=== PATIENT | female | born 1960 | race Caucasian/White ===

== ENCOUNTER → 2020-02-21 | Outpatient (CLI) | payer OTHER, MEDICAID ==
[~2020-02-21] MED LIST: ALPR0.5T PO; ATOR20TA58 PO; BACL20TA PO; BUPIVACAINE MPF 0.25% 10 ML VIAL. ONE; CLON0.1T PO; HYDR50TA PO; IBUP-1007 PO; LEVE100020 PO; OXYC-325 PO; PRAZ2CAP2 PO; VORT20TA PO; ZOLP10TA PO; methylPREDNISolone ACETATE 40 MG/ML VIAL. ONE
--- NOTE | 2020-02-21 14:45 | PDOC1 ---
INITIAL PAIN CONSULT DATE OF SERVICE: DOS: DATE: 02/21/20 TIME: 14:32 CHIEF COMPLAINT: Chief Complaint: Left shoulder, low back and right lower extremity pain HISTORY OF PRESENT ILLNESS: 60-year-old female presents history of pain since 1995 after she fell on ice on stairs and had a fracture in her back which is left her partially paraplegic. Patient reports he has had pain on and off throughout the years even had a baclofen pump at 1 time the pump is still there but nonfunctional spinal cord stimulator system as well as multiple entered inventions including trigger point injections epidural injections also has had multiple bouts of counseling continues to do stretching and strengthening but she can is taking baclofen as a muscle relaxer now as well as Percocet Dilaudid she is tried tramadol which has not been significantly helpful for her. Patient scribes pain is in the left shoulder as well as in the mid back upper back low back and the right leg specifically worse with motion worse with attempted walking, standing although it is limited she can stand and transfer from 1 seated position to another although she is unstable with attempting to walk. Patient is confined essentially to a wheelchair at all times for ambulation. Patient rates her pain as a 9 on a scale of 10 currently. Patient rates her disability rating 0-10 10 being the worst is an 8 with him home responsibilities 9 with recreation and occupational activities 10 with social activity and sexual behavior 7 with self- care and 8 with life support activities. Patient has had multiple films x-ray showing lumbar fusion as well as degenerative disc disease still present throughout the lumbar spine. PAST MEDICAL HISTORY: PMH: Hypertension, arthritis, osteoporosis PREVIOUS SURGERIES: Past Surgical Hx: Lumbar surgery times 08/2011 2003 1986 and 2017, hernia repair x2, bilateral hip replacement 2011, pain pump placement CURRENT MEDICATIONS: Current Meds: Active Scripts Medications Dose Route/Sig Max Daily Dose Days Date Category Ambien (Zolpidem Tartrate) 10 Mg Tablet 10 Mg PO PRN QHS PRN 02/21/20 Reported Trintellix (Vortioxetine) 20 Mg Tablet 1 Tab PO DAILY 30 02/21/20 Reported Prazosin Hcl 2 Mg Capsule 1 Cap PO QHS 02/21/20 Reported Xanax (Alprazolam) 0.5 Mg Tablet 1 Tab PO BID 02/21/20 Reported Clonidine Hcl 0.1 Mg Tablet 0.1 Mg PO BID 02/21/20 Reported Atorvastatin Calcium 20 Mg Tablet 1 Tab PO DAILY 02/21/20 Reported Ibuprofen 600 Mg Tablet 600 Mg PO TID PRN 02/21/20 Reported Hydroxyzine Hcl 50 Mg Tablet 50 Mg PO QID 02/21/20 Reported Baclofen 20 Mg Tablet 1 Tab PO TID 02/21/20 Reported Keppra (Levetiracetam) 1,000 Mg Tablet 1 Tab PO BID 30 02/21/20 Reported Percocet 5-325 mg Tablet (Oxycodone HCl/Acetaminophen) 1 Each Tablet 1 Tab PO QIDPRN PRN MDD 4 Tablet(s) 30 02/21/20 Reported ALLERGIES; Allergies: Coded Allergies: pregabalin (Verified Allergy, Severe, siezures, 02/21/20) mirtazapine (Verified Allergy, Intermediate, nervouse, 02/21/20) FAMILY HISTORY: Family Hx: No major medical problems or conditions that she is aware of SOCIAL HISTORY: Social Hx: Patient is under alcohol does not smoke does not use any illegal illicit or recreational drugs, is single lives locally in [place], is currently on disability secondary to her current situation REVIEW OF SYSTEMS: ROS: Positive for those items mentioned in history of present illness, all systems are reviewed, otherwise negative, is complete full and well-documented on patient's chart PHYSICAL EXAM: VS: Blood pressure is 149/96 pulse 73 respirations 18 temperature 98.2 F height is 5 foot weight is 129 pounds PE: PHYSICAL EXAMINATION: GENERAL: The patient is awake, alert, oriented, appropriate, very pleasant demeanor HEENT: Shows normocephalic, atraumatic. Extraocular movements are intact and symmetrical. Oral cavity: Mucous membranes moist and pink. Dentition is intact. NECK: Shows anterior throat supple without palpable lymphadenopathy noted. Swallow reflex symmetrical. CHEST: Shows normal on inspection. Breath sounds are clear bilaterally, no rales rhonchi or wheezes auscultated. HEART: Shows S1, S2 clear. No murmurs auscultated. ABDOMEN: Soft, nontender, nondistended. No palpable organomegaly is noted. No rebound or guarding demonstrated. BACK: Shows spine grossly in the midline. Normal-appearing cervical lordotic curvature. There is slightly increased thoracic kyphosis, with palpation shows significant tenderness in the left trapezius as well as the supraspinatus and left thoracic paraspinous musculature with very firm ropelike musculature consistent with trigger point areas of muscle. Some minor flattening of the lumbar lordotic curvature. Well-healed surgical scarring is noted in the lumbar distribution. Also easily palpable l intrathecal pump to the left of midline with well-healed surgical scarring as well. lumbar paraspinous muscles show symmetrical on inspection, on palpation shows some moderate tenderness throughout the upper, middle and lower distribution of the paraspinous muscles bilaterally with very firm ropelike musculature in the middle and lower distribution the paraspinous muscles specifically more on the right than the left but very firm consistent with trigger point areas of musculature in the lumbar distribution bilaterally. Also into the lower thoracic paraspinous musculature, firm and tender, without radiation of pain. The patient has good rotational motion of the lumbar spine, both laterally as well as extension and flexion without significant difficulty. No tenderness over the spinous processes, sacrum or sacroiliac regions. EXTREMITIES: Lower extremities show deep tendon reflexes 1+ in the patellar and tendo calcaneus tendons. Motor exam is 3 on a scale of 5 with right dorsifle xion, extension, quadriceps and hamstring flexion and 4/5 on the left. Peripheral pulses are 1+ posterior tibial. No peripheral edema is noted bilaterally. Lower extremities are warm and dry to touch, equal in color and appearance. Patient is able to transfer self from the wheelchair to a chair with some assistance and does put weight on both of her legs but is very unstable in doing so. SKIN: Shows warm and dry, good turgor. No edema. No sores, rashes or bruising throughout. IMPRESSION: Impression: 60-year-old female with history of spinal injury 1996 with partial paraplegia Myofascial pain in the left trapezius, left rhomboid left supraspinatus, bilateral lumbar paraspinous musculature and right hamstring Hypertension Arthritis Osteoporosis Plan: Options were discussed with patient including conservative medical management, physical therapies, and interventional techniques. Patient would like to pursue dimensional techniques we discussed trigger point injections of t he identified musculature. Risks were discussed including but not limited to bleeding infection possibility of intravascular injection sequelae spread local anesthetic numbness pneumothorax side effects of steroid medication and poor results regarding pain control. Patient understands wishes to proceed. Patient will return to clinic in approximately 2 weeks for follow-up was counseled as to return appointment activity level and side effects to be aware of. Under sterile prep and drape patient's left trapezius left supraspinatus left thoracic paraspinous as well as bilateral lumbar paraspinous puncture was prepped and draped and identifying trigger point areas of musculature using a 25-gauge needle 1 cc of 0.25% bupivacaine was injected in each site after negative aspiration a total of 40 mg Depo-Medrol for a total of 14 cc combined. Patient tolerated the procedure well had no immediate complications. BRITTA RAMIREZ MD Feb 21, 2020 14:45
== END ==
LOC: PNCL 10:54
PROVIDERS: ATTEND Anesthesiology
DX: M25.512 Pain in left shoulder (principal); M51.36 Other intervertebral disc degeneration, lumbar region; M79.604 Pain in right leg; M79.18 Myalgia, other site; I10 Essential (primary) hypertension; M19.90 Unspecified osteoarthritis, unspecified site; Z98.890 Other specified postprocedural states; Z88.8 Allergy status to other drugs, medicaments and biological substances; Z79.899 Other long term (current) drug therapy
CPT/HCPCS: 20553; J1030; J3490

== ENCOUNTER → 2020-04-12 | Outpatient (CLI) | payer OTHER, MEDICAID ==
[~2020-04-12] MED LIST changes: +BUPIVACAINE MPF 0.25% 30 ML VIAL. ONE
--- NOTE | 2020-04-12 12:05 | PDOC ---
Progress Note - Pain Clinic Date of Service: DOS: DATE: 04/12/20 TIME: 11:56 Diagnosis: Dx: Myofascial pain with spasticity Partial paraplegia Lumbar radiculopathy with post lumbar laminectomy syndrome History or Present Illness: HPI: 60-year-old female returns follow-up status post initial evaluation and trigger point injections in the left trapezius and rhomboid left thoracic paraspinous musculature as well as the lumbar paraspinous muscles in the right hamstrings. Patient was about 50% improvement for several weeks after the injections where she was decreasing her pain medication by 50%. Patient ports pain is returning now she is taking her pain medicine twice daily as she had previously but had reduced it to once a day after her injections. Patient reports its in the base of the neck and the left shoulder mid upper back left greater than right bilateral lumbar distribution with significant pain with rotation of motion moving standing changing positions also into the right posterior thigh in the hamstring. Patient reports pain is aching dull tight shooting burning stabbing radiating constant unbearable at times worse with trying to get from her wheelchair to the bed or changes positions and transfers. Patient does have partial paraplegia and the pain is limiting her significantly especially in the right hamstrings and the low back. She reports generalized not awaken her from sleep at night she does take medication to help her sleep. Patient reports no new motor or sensory deficits no new bowel or bladder complaints. Physical Exam: VS: Blood pressure is 131/97 pulse 74 respiration 16 temperature is 98.3 F weight is 125 pounds PE: PHYSICAL EXAMINATION: GENERAL: The patient is awake, alert, oriented, appropriate, very pleasant demeanor HEENT: Shows normocephalic, atraumatic. Extraocular movements are intact and symmetrical. Oral cavity: Mucous membranes moist and pink. NECK: Shows anterior throat supple without palpable lymphadenopathy noted. Swallow reflex symmetrical. CHEST: Shows normal on inspection. Breath sounds are clear bilaterally. HEART: Shows S1, S2 clear. No murmurs auscultated. ABDOMEN: Soft, nontender, nondistended, obese. No palpable organomegaly is noted. No rebound or guarding demonstrated. BACK: Shows spine grossly in the midline. Normal-appearing cervical lordotic curvature. There is slightly increased thoracic kyphosis, some minor flattening of the lumbar lordotic curvature. With palpation shows very firm ropelike musculature in the left trapezius medial and lateral aspect and superior into the inferior cervical paraspinous musculature very firm ropelike musculature consistent with trigger point areas but without specific radiation. Thoracic paraspinous muscle shows significant tenderness on the left but not the right in the superior aspect of thoracic paraspinous muscles with very firm ropelike musculature consistent with trigger point areas of musculature but without radiation as well. Well-healed surgical scar in the lumbar midline. Lumbar paraspinous muscles show symmetrical on inspection, on palpation shows upper middle and lower distribution of the paraspinous musculature with very firm ropelike musculature is slightly worse on the left than the right but present bilaterally consistent with areas of trigger point musculature but without specific radiation. No tenderness over the spinous processes, sacrum or sacroiliac regions. EXTREMITIES: Lower extremities show deep tendon reflexes 2+ in the patellar and 1+ tendo calcaneus tendons. Motor exam is 3 on a scale of 5 with right dorsiflexion, extension, quadriceps and hamstring flexion and 4/5 on the left. Right hamstring region shows very firm ropelike musculature throughout the lateral aspect of the hamstring from the ischial tuberosity to the knee with very firm ropelike musculature consistent with trigger point areas of musculature but without radiation. Peripheral pulses are 1+ posterior tibial. No peripheral edema is noted bilaterally. Lower extremities are warm and dry to touch, equal in color and appearance. SKIN: Shows warm and dry, good turgor. No edema. No sores, rashes or bruising throughout. Procedure: Procedure: Options were discussed with the patient. Patient chart was reviewed as her current medication regimen updated current review of systems updated today as well. We will proceed with trigger point injections of the identified musculature. Risks are discussed including but not limited to bleeding infection possibility of intravascular injection sequelae spread local anesthetic numbness pneumothorax side effects of steroid medication and poor results regarding pain control. Patient understands wished to proceed. Patient return to clinic in approximate 4 weeks for follow-up was counseled as to return appointment activity level and side effects to be aware of. Medication Injected: Med Injected: Under sterile prep and drape trigger points were identified in the inferior cervical paraspinous posterior left trapezius musculature left thoracic paraspinous musculature, bilateral lumbar paraspinous musculature and right hamstring musculature. Using a 25-gauge 1/2 inch needle each of the identified trigger point areas were identified and after negative aspiration at each site was injected with 1 cc of 0.25% Vivacaine and a total of 40 cc of Depo-Medrol diluted in the bupivacaine. Patient tolerated the procedure well had no immediate complications. Condition at Discharge: Condition at Discharge: Condition at discharge stable, patient tolerated procedure well had no complications. BRITTA RAMIREZ MD Apr 12, 2020 12:05
== END | disposition home or self-care (01) ==
LOC: PNCL 11:19
PROVIDERS: ATTEND Anesthesiology
DX: M79.18 Myalgia, other site (principal); M54.16 Radiculopathy, lumbar region; M96.1 Postlaminectomy syndrome, not elsewhere classified; R25.2 Cramp and spasm; G82.20 Paraplegia, unspecified; Z79.899 Other long term (current) drug therapy; Z88.8 Allergy status to other drugs, medicaments and biological substances
CPT/HCPCS: 20553; J1030; J3490

== ENCOUNTER → 2020-05-10 | Outpatient (CLI) | payer OTHER, MEDICAID ==
[~2020-05-10] MED LIST changes: -BUPIVACAINE MPF 0.25% 10 ML VIAL. ONE; +ESZO2TAB21 PO
--- NOTE | 2020-05-10 12:43 | PDOC ---
Progress Note - Pain Clinic Date of Service: DOS: DATE: 05/10/20 TIME: 12:36 Diagnosis: Dx: Myofascial pain with spasticity Lumbar radiculopathy with lumbar postlaminectomy syndrome Partial paraplegia History or Present Illness: HPI: 60-year-old female returns follow-up status post trigger point injections with very good results. Reports at least 50% or more decrease pain but the pain returned after about 1 to 2 weeks not to its baseline but still significant reduction overall about 50% patient reports the pain is in the base of the neck and shoulders mid neck as well his upper back mid back low back and the right posterior leg and gluteus bilaterally patient reports is worse with activities standing stretching patient does have some partial paraplegia from previous lumbar injury and is limited to most of her mobility but does have a motorized wheelchair she uses for most of her ambulatory needs. Patient reports her pain is a 9 on scale 10 is worse over the past week 8 on average 8 at its least and is an 8 today patient describes as tingling and burning stabbing aching sharp tight radiating can be constant ache in the low back into the right leg debby etimes unbearable but most times controlled fairly well with stretching and strengthening exercises as well as oral medications. Patient reports no new motor or sensory deficits no new bowel or bladder incontinence. Patient reports that her intrathecal pump site which is on the left posterior gluteus is aching and very painful as well and it has not been used in several years with like to see about getting it removed. Physical Exam: VS: Blood pressure is 118/86 pulse 73 respirations 16 temperature 98.4 F height and weight were deferred secondary to patient's request. PE: PHYSICAL EXAMINATION: GENERAL: The patient is awake, alert, oriented, appropriate, very pleasant demeanor HEENT: Shows normocephalic, atraumatic. Extraocular movements are intact and symmetrical. Oral cavity: Mucous membranes moist and pink. Dentition is intact. NECK: Shows anterior throat supple without palpable lymphadenopathy noted. CHEST: Shows normal on inspection. Breath sounds are clear bilaterally. HEART: Shows S1, S2 clear. No murmurs auscultated. ABDOMEN: Soft, nontender, nondistended. No palpable organomegaly is noted. BACK: Shows spine grossly in the midline. Normal-appearing cervical lordotic curvature. There is increased thoracic kyphosis, some flattening of the lumbar lordotic curvature, with well-healed surgical scarring again noted. Lumbar paraspinous muscles show very firm ropelike musculature bilaterally slightly worse on the right than the left and present bilaterally with very firm trigger point consistency musculature bilaterally without specific radiation this is true into the gluteus musculature as well as the thoracic paraspinous muscles right greater than left but present bilaterally as well throughout the thoracic distribution also with cervical paraspinous muscles show symmetrical with inspection but with palpation some very firm ropelike musculature consistent with trigger point areas of musculature bilaterally again worse on the right than the left but present into the trapezius bilaterally as well on the right worse. No radiation is demonstrated. Patient does show good rotation motion of the cervical spine both laterally as well as extension flexion without significant increase in pain or limitation. EXTREMITIES: Lower extremities show deep tendon reflexes 2+ in the patellar and tendo calcaneus tendons. Motor exam is 3 on a scale of 5 with right dorsiflexion, extension, quadriceps and hamstring flexion and 4/5 on the left. Peripheral pulses are 1+ posterior tibial. No peripheral edema is noted bilaterally. Lower extremities are warm and dry to touch, equal in color and appearance. Patient in electric wheelchair. SKIN: Shows warm and dry, good turgor. No edema. No sores, rashes or bruising throughout. Procedure: Procedure: Options were discussed with the patient. Patient chart reviews her current medication regimen updated current review of systems updated today as well. We will proceed with trigger point injections of the identified musculature. Risks were discussed including but not limited to bleeding infection possibility of intravascular injection sequelae spread to local anesthetic and numbness side effects of steroid medication, as well as poor results running pain control. Patient understands wished to proceed. Patient return to clinic in approximate 4 weeks for follow-up, was counseled as return appointment activity level and side effects to be aware of. Medication Injected: Med Injected: Under sterile prep and drape trigger points were identified in the cervical paraspinous muscles bilaterally bilateral trapezius musculature bilateral thoracic paraspinous musculature bilateral lumbar paraspinous posterior and bilateral gluteus musculature as well as right hamstring musculature. Each showing negative aspiration prior to injection at 1 cc for total of 14 trigger points and 14 cc of 0.25% bupivacaine, and 40 mg total Depo-Medrol. Patient tolerated the procedure well and had no complications. Condition at Discharge: Condition at Discharge: Condition at discharge stable, patient tolerated the procedure well had no complications. BRITTA RAMIREZ MD May 10, 2020 12:43
== END | disposition home or self-care (01) ==
LOC: PNCL 10:54
PROVIDERS: ATTEND Anesthesiology
DX: M54.16 Radiculopathy, lumbar region (principal); M96.1 Postlaminectomy syndrome, not elsewhere classified; M79.18 Myalgia, other site; G82.20 Paraplegia, unspecified; R25.2 Cramp and spasm; Z79.899 Other long term (current) drug therapy; Z98.890 Other specified postprocedural states; Z88.8 Allergy status to other drugs, medicaments and biological substances
CPT/HCPCS: 20553; J1030; J3490

== ENCOUNTER → 2020-06-07 | Outpatient (CLI) | payer OTHER, MEDICAID ==
[~2020-06-07] MED LIST changes: -BUPIVACAINE MPF 0.25% 30 ML VIAL. ONE; +IOHEXOL 180 MG/ML 10 ML VIAL. ONE; +methylPREDNISolone ACETATE 80 MG/ML VIAL. ONE
--- NOTE | 2020-06-07 12:29 | PDOC ---
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 Patient reports that her main complaint today is low back and right lower extremity pain is more increasing into the right posterior gluteus posterior thigh and calf on the right side rates a 9 on scale 10 is worst 9 on average 8 its least is a 9 today. Patient reports no new motor or sensory deficits no bowel or bladder incontinence again patient has partial paraplegia from injury 1995 and is using an electric wheelchair to transfer today. Patient describes pain as aching sharp dull shooting into the right lower extremity stabbing in the back tingling burning in the shoulders as well radiating from the low back into the right lower extremity is constant with activity changing positions and for prolonged sitting. Patient reports that it sporadically wakes her from sleep at night but also to the myofascial pain in the upper back and shoulders is disturbing her sleep as well. Patient reports no new motor or sensory deficits no new changes. Physical Exam: VS: Blood pressure is 143 pulse 79 respirations 20 temperature is 98.2 F PE: PHYSICAL EXAMINATION: GENERAL: The patient is awake, alert, oriented, appropriate, and very pleasant demeanor HEENT: Shows normocephalic, atraumatic. Extraocular movements are intact and symmetrical. Oral cavity: Mucous membranes moist and pink. Dentition is intact. NECK: Shows anterior throat supple without palpable lymphadenopathy noted. Swallow reflex symmetrical. CHEST: Shows normal on inspection. Breath sounds are clear bilaterally, no rales or rhonchi auscultated. HEART: Shows S1, S2 clear. No murmurs auscultated. ABDOMEN: Soft, nontender, nondistended. No palpable organomegaly is noted. BACK: Shows spine grossly in the midline. Normal-appearing cervical lordotic curvature. Patient shows significant tenderness in the inferior cervical paraspinous muscles as well as the bilateral trapezius musculature and thoracic paraspinous muscles very firm ropelike musculature throughout these regions consistent with trigger point areas of musculature but without specific radiation. There is increased thoracic kyphosis, some flattening of the lumbar lordotic curvature, with well-healed surgical scarring noted. Easily palpable intrathecal pump is palpable in the left lateral paraspinous lumbar distribution. Lumbar paraspinous muscles show symmetrical on inspection, on palpation shows some moderate tenderness diffusely throughout the upper, middle and lower distribution of the paraspinous muscles bilaterally and also into the lower thoracic paraspinous musculature, firm and tender, without radiation of pain. The patient has good rotational motion of the lumbar spine, both laterally as well as extension and flexion without significant difficulty. No tenderness over the spinous processes, sacrum or sacroiliac regions. EXTREMITIES: Lower extremities show deep tendon reflexes 2+ in the patellar and tendo calcaneus tendons. Motor exam is 3 on a scale of 5 with right dorsiflexion, extension, quadriceps and hamstring flexion and 4/5 on the left. Peripheral pulses are 1+ posterior tibial. No peripheral edema is noted bilater ally. Lower extremities are warm and dry to touch, equal in color and appearance. Patient has partial paraplegia but uses her lower extremities which are capable to hold her with weightbearing and standing but not capable of walking more than 1 or 2 steps with significant assistance. SKIN: Shows warm and dry, good turgor. No edema. No sores, rashes or bruising throughout. Procedure: Procedure: Options were discussed with the patient. Patient chart reviews her current me dication regimen updated current review of systems updated today as well. We will proceed with a caudal approach epidural steroid injection today with fluoroscopic guidance. Risks were discussed including but not limited to: Bleeding, infection, possibility of epidural hematoma and subsequent neurological compromise, dural puncture, headaches, spinal cord and/or nerve damage, side effects of steroid medication, and poor results regarding pain control. Patient understands and wished to proceed. Patient return to the clinic in approximately 3 weeks for follow-up, was counseled as to return appointment, activity level, and side effects to be aware of. Medication Injected: Med Injected: Procedure is lumbar epidural steroid injection under local anesthetic using sterile prep and drape at the caudal level using C-arm fluoroscopic guidance in both AP and lateral views medications injected is 120 mg Depo-Medrol + 10 mL preservative-free normal saline and 2 mL contrast- condition at discharge is stable patient tolerated procedure well had no complications. Condition at Discharge: Condition at Discharge: Condition at discharge stable, patient tolerated the procedure well and had no complications. BRITTA RAMIREZ MD Jun 07, 2020 12:29
--- NOTE | 2020-06-07 12:30 | PDOC4 ---
PROCEDURE Procedure Patient was consented for a caudal approach epidural steroid injection. Risks were discussed including but not limited to: Bleeding, infection, possibility of epidural hematoma and subsequent neurological compromise, dural puncture, headaches, spinal cord and/or nerve damage, side effects of steroid medication, and poor results regarding pain control. Patient understands and wished to proceed. Procedure is lumbar epidural steroid injection under local anesthetic using sterile prep and drape at the caudal level using C-arm fluoroscopic guidance in both AP and lateral views medications injected is 120 mg Depo-Medrol + 10 mL preservative-free normal saline and 2 mL contrast- condition at discharge is stable patient tolerated procedure well had no complications. BRITTA RAMIREZ MD Jun 07, 2020 12:30
== END | disposition home or self-care (01) ==
LOC: PNCL 11:43
PROVIDERS: ATTEND Anesthesiology
DX: M96.1 Postlaminectomy syndrome, not elsewhere classified (principal); M79.10 Myalgia, unspecified site; R25.2 Cramp and spasm; G82.20 Paraplegia, unspecified; Z79.899 Other long term (current) drug therapy; Z88.8 Allergy status to other drugs, medicaments and biological substances
CPT/HCPCS: 62323; J1030; J1040; Q9965

== ENCOUNTER → 2020-07-05 | Outpatient (CLI) | payer OTHER, MEDICAID ==
[~2020-07-05] MED LIST changes: +BUPIVACAINE MPF 0.25% 10 ML VIAL. ONE
--- NOTE | 2020-07-05 11:42 | PDOC ---
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 Patient ports a caudal injection decrease the pain in her back and leg by about 60% and is still a 6% improved. Patient is very pleased with his and reports that her main complaint now is pain in the left side of the neck and into the left shoulder and upper back. Patient reports otherwise doing very well with the pain in her low back and left leg. Patient reports no new motor or sensory deficits no new bowel or bladder inco ntinence or other complaints. Patient reports the pain in the neck and shoulder is worse with changing positions standing is difficulty with her sleeping about every 4 hours is been waking her from sleep with the pain in the neck and the left shoulder patient rates as a 9 on scale 10 is worse over the past week 9 on average 7 at its least is a 9 today patient ports aching and shooting had some tingling and burning quality as well as stabbing quality as well in the left shoulder and radiating to the upper left back. Physical Exam: VS: Blood pressure is 135/86 pulse 81 respirations 20 temperature 98.0 F, height and weight were deferred as patient is in electric wheelchair. PE: PHYSICAL EXAMINATION: GENERAL: The patient is awake, alert, oriented, appropriate, very pleasant demeanor HEENT: Shows normocephalic, atraumatic. Extraocular movements are intact and symmetrical. Oral cavity: Mucous membranes moist and pink. Dentition is intact. NECK: Shows anterior throat supple without palpable lymphadenopathy noted. Swallow reflex symmetrical. CHEST: Shows normal on inspection. Breath sounds are clear bilaterally, no rales or rhonchi bilaterally. HEART: Shows S1, S2 clear. No murmurs auscultated. ABDOMEN: Soft, nontender, nondistended, obese. No palpable organomegaly is noted. BACK: Shows spine grossly in the midline. Normal-appearing cervical lordotic curvature. Cervical paraspinous muscles show symmetrical with inspection on palpation some very firm ropelike musculature in the superior middle and inferior aspect of the cervical paraspinous posture on the left but not the right which is supple. Also into the left superior medial trapezius very firm ropelike musculature consistent with trigger point areas of musculature and into the thoracic paraspinous posture on the left in the superior aspect with very firm ropelike musculature consistent with trigger point areas as well. Right side is supple without specific trigger points palpable. Patient neck shows full rotation motion cervical spine both laterally as well as full extension full forward flexion without significant difficulty. There is slightly increased thoracic kyphosis, some minor flattening of the lumbar lordotic curvature. Lumbar paraspinous muscles show symmetrical on inspection, but without specific trigger points, without radiation of pain. The patient has good rotational motion of the lumbar spine, both laterally as well as extension and flexion without significant difficulty. EXTREMITIES: Lower extremities show deep tendon reflexes 2+ in the patellar and tendo calcaneus tendons. Motor exam is 3 on a scale of 5 with right dorsiflexion, extension, quadriceps and hamstring flexion and 4/5 on the left. Peripheral pulses are 1+ posterior tibial. No peripheral edema is noted bilaterally. Lower extremities are warm and dry to touch, equal in color and appearance. SKIN: Shows warm and dry, good turgor. No edema. No sores, rashes or bruising throughout. Procedure: Procedure: Options were discussed with the patient. Patient chart was reviewed his current medication regimen updated current review of systems updated today as well. We will proceed with trigger point injections of the left cervical paraspinous posterior left trapezius musculature left thoracic paraspinous musculature. Risks were discussed including but not limited to bleeding infection possibility of intravascular injection sequelae spread local anesthetic numbness pneumothorax side effects steroid medication and poor results regarding pain control. She understands wished to proceed. Patient return to clinic in approx imately 4 weeks for follow-up was counseled as to return appointment activity level and side effects to be aware of. Medication Injected: Med Injected: Under sterile prep and drape patient in sitting position left cervical paraspinous musculature superior middle and inferior as well as trapezius musculature on the left and thoracic paraspinous posture trigger points were identified and injected using a 25-gauge needle with 1 cc of 0.25% bupivacaine and total of 40 mg Depo-Medrol and 8 cc total. Patient tolerated procedure well had no complications. Condition at Discharge: Condition at Discharge: Condition at discharge stable, patient alert procedure well and had no complications. BRITTA RAMIREZ MD Jul 05, 2020 11:42
--- NOTE | 2020-07-05 11:42 | PDOC4 ---
PROCEDURE Procedure Patient was consented for trigger point injections. Discussed including but not limited to bleeding infection possibility of intravascular ejection sequelae spread to local anesthetic and numbness side effects steroid medication pneumothorax and portals regarding pain control. Patient understands wished to proceed. Under sterile prep and drape patient in sitting position left cervical paraspinous musculature superior middle and inferior as well as trapezius musculature on the left and thoracic paraspinous posture trigger points were identified and injected using a 25-gauge needle with 1 cc of 0.25% bupivacaine and total of 40 mg Depo-Medrol and 8 cc total. Patient tolerated procedure well had no complications. BRITTA RAMIREZ MD Jul 05, 2020 11:42
== END | disposition home or self-care (01) ==
LOC: PNCL 10:46
PROVIDERS: ATTEND Anesthesiology
DX: M96.1 Postlaminectomy syndrome, not elsewhere classified (principal); M79.18 Myalgia, other site; G82.20 Paraplegia, unspecified; R25.2 Cramp and spasm; Z79.899 Other long term (current) drug therapy; Z88.8 Allergy status to other drugs, medicaments and biological substances
CPT/HCPCS: 20553; J1030; J3490; J1040; Q9965

== ENCOUNTER → 2020-08-13 | Outpatient (CLI) | payer OTHER, MEDICAID ==
[~2020-08-13] MED LIST changes: -IOHEXOL 180 MG/ML 10 ML VIAL. ONE; -methylPREDNISolone ACETATE 80 MG/ML VIAL. ONE
--- NOTE | 2020-08-13 10:47 | PDOC ---
Progress Note - Pain Clinic Date of Service: DOS: DATE: 08/13/20 TIME: 10:40 Diagnosis: Dx: Myofascial pain with spasticity Lumbar radiculopathy with lumbar postlaminectomy syndrome Partial paraplegia History or Present Illness: HPI: 60-year-old female returns for follow-up status post trigger point injections in the cervical paraspinous posterior trapezius and thoracic paraspinous muscles with very good results. Patient reports her main complaint now is right posterior gluteus and posterior thigh pain worse with changing positions worse with weightbearing worse with movement of the right lower extremity and prolonged sitting. Patient reports the pain is a 9 on scale 10 is worse over the past week 9 on average 7 its least is an 8 today. Patient describes as aching and sharp shooting at times tingling and burning stabbing in the right posterior gluteus and thigh radiating can be constant and unbearable with position changes and weightbearing. Patient reports it wakes her from sleep release 4 times at night. Patient reports no new motor or sensory deficits no new bowel or bladder incontinence. Physical Exam: VS: Blood pressure is 125/94 pulse 81 respirations 18 temperature 98.0 F 5 feet 4 his weight is 129 pounds PE: PHYSICAL EXAMINATION: GENERAL: The patient is awake, alert, oriented, appropriate, very pleasant demeanor, patient in motorized wheelchair. HEENT: Shows normocephalic, atraumatic. Extraocular movements are intact and symmetrical. Oral cavity: Mucous membranes moist and pink. Dentition is intact. NECK: Shows anterior throat supple without palpable lymphadenopathy noted. CHEST: Shows normal on inspection. Breath sounds are clear bilaterally. HEART: Shows S1, S2 clear. No murmurs auscultated. ABDOMEN: Soft, nontender, nondistended. No palpable organomegaly is noted. BACK: Shows spine grossly in the midline. Normal-appearing cervical lordotic curvature. There is slightly increased thoracic kyphosis, some minor flattening of the lumbar lordotic curvature. Well-healed lumbar surgical scar is noted also easily palpable intrathecal pump in the left inferior lumbar distribution. Lumbar paraspinous muscles show symmetrical on inspection, on palpation shows some moderate tenderness diffusely throughout the upper, middle and lower distribution of the paraspinous muscles bilaterally and also into the lower thoracic paraspinous musculature, firm and tender, without radiation of pain. No tenderness over the spinous processes, sacrum or sacroiliac regions. EXTREMITIES: Lower extremities show deep tendon reflexes 2+ in the patellar and tendo calcaneus tendons. Motor exam is 3 on a scale of 5 with right dorsiflexion, extension, quadriceps and hamstring flexion and 4/5 on the left. Peripheral pulses are 1+ posterior tibial. No peripheral edema is noted bilaterally. Right gluteus has significant tenderness very firm ropelike musculature consistent with trigger point areas of musculature this is true into the hamstrings area specifically the right biceps for Jack right abductor mreari superiorly and right semimembranosus and semitendinous musculature both superiorly and mid thigh. No specific radiation is demonstrated but very firm ropelike musculature throughout these muscles consistent with trigger point areas. Lower extremities are warm and dry to touch, equal in color and appearance. SKIN: Shows warm and dry, good turgor. No edema. No sores, rashes or bruising throughout. Procedure: Procedure: Options were discussed with the patient. Patient chart reviews her current medication regimen updated current review of systems updated today as well. We will proceed with trigger point injections of the right gluteus musculature right biceps for Jack right abductor merari right semimembranosus and semitendinosus hamstring musculature. Risks were discussed including but not limited to bleeding infection possibility of intravascular injection sequelae spread local acetic numbness side effects steroid medication and portal regarding pain control. Patient understands wished to proceed. Return to clinic in approximately 4 weeks for follow-up, was counseled as to return appointment activity level and side effects to be aware of. Medication Injected: Med Injected: Under sterile prep and drape patient in left lateral decubitus position patient's right gluteus right hamstring area was sterilely prepped and draped and using palpation identified very firm ropelike musculature in the right gluteus as well as the right biceps for Jack right abductor merari superiorly right semimembranous and semitendinous musculature both superiorly and mid thigh. Using 25-gauge needle after negative aspiration each injection site total of 9 cc 0.25% ropivacaine and total of 40 mg Depo-Medrol. Patient tolerated the procedure well had no complications. Condition at Discharge: Condition at Discharge: Condition at discharge stable, patient already procedure well and had no complications. BRITTA RAMIREZ MD Aug 13, 2020 10:47
--- NOTE | 2020-08-13 10:48 | PDOC4 ---
PROCEDURE Procedure Patient was consented for trigger point injections. Risk were discussed inc luding but not limited to bleeding infection possibility of intravascular ejection sequelae spread local anesthetic numbness side effects steroid medication and portal scarring pain control. Patient understands wished to proceed. Under sterile prep and drape patient in left lateral decubitus position patient's right gluteus right hamstring area was sterilely prepped and draped and using palpation identified very firm ropelike musculature in the right gluteus as well as the right biceps for Jack right abductor merari superiorly right semimembranous and semitendinous musculature both superiorly and mid thigh. Using 25-gauge needle after negative aspiration each injection site total of 9 cc 0.25% ropivacaine and total of 40 mg Depo-Medrol. Patient tolerated the procedure well had no complications. BRITTA RAMIREZ MD Aug 13, 2020 10:48
== END | disposition home or self-care (01) ==
LOC: PNCL 09:52
PROVIDERS: ATTEND Anesthesiology
DX: M79.18 Myalgia, other site (principal); M54.16 Radiculopathy, lumbar region; M96.1 Postlaminectomy syndrome, not elsewhere classified; G82.20 Paraplegia, unspecified; R25.2 Cramp and spasm; Z79.899 Other long term (current) drug therapy; Z88.8 Allergy status to other drugs, medicaments and biological substances
CPT/HCPCS: 20553; J1030; J3490

== ENCOUNTER → 2020-09-20 | Outpatient (CLI) | payer OTHER, MEDICAID ==
[~2020-09-20] MED LIST changes: -BUPIVACAINE MPF 0.25% 10 ML VIAL. ONE; +BUPIVACAINE MPF 0.25% 30 ML VIAL. ONE
--- NOTE | 2020-09-20 12:13 | PDOC ---
Progress Note - Pain Clinic Date of Service: DOS: DATE: 09/20/20 TIME: 12:07 Diagnosis: Dx: Myofascial pain with spasticity Lumbar to colopathy lumbar postlaminectomy syndrome Partial paraplegia History or Present Illness: HPI: 60-year-old female returns for follow-up status post trigger point injections with very good results patient reports near 100% improvement for about 2 weeks following the injections in the low back right gluteus right hamstrings patient reports now she is having significant spasticity in the base the neck upper neck on the left side only and into the left shoulder patient reports also in the low back and into the right lower extremity as was previously patient reports over the past few days been a 10 on scale 10 is worst least and average is a 10 today patient ports aching sharp tightness shooting in the leg tingling and burning in the shoulder as well as radiating into the lower extremity pain the left side of the shoulder worse with sleeping patient reports episodes about once or twice a night no new motor or sensory deficits no new bowel or bladder incontinence or other complaints. Physical Exam: VS: Blood pressure is 115/87 pulse 93 respirations 18 temperature 98.2 F height is 5 foot 4 inches weight is 111 pounds PE: PHYSICAL EXAMINATION: GENERAL: The patient is awake, alert, oriented, appropriate, very pleasant mark anor HEENT: Shows normocephalic, atraumatic. Extraocular movements are intact and symmetrical. Oral cavity: Mucous membranes moist and pink. Dentition is intact. NECK: Shows anterior throat supple without palpable lymphadenopathy noted. Swallow reflex symmetrical. CHEST: Shows normal on inspection. Breath sounds are clear bilaterally, no rales or rhonchi. HEART: Shows S1, S2 clear. No murmurs auscultated. ABDOMEN: Soft, nontender, nondistended, obese. No palpable organomegaly is noted. BACK: Shows spine grossly in the midline. Normal-appearing cervical lordotic curvature. Cervical paraspinous muscles show symmetrical inspection with palpation significant tenderness in the upper middle and lower distribution of the cervical paraspinous posterior on the left with very firm ropelike muscular consistent with trigger point areas of musculature this is true into the superior medial trapezius as well as the lateral trapezius on the left side only but without radiation. There is slightly increased thoracic kyphosis, some minor flattening of the lumbar lordotic curvature. Lumbar paraspinous muscles show symmetrical on inspection, on palpation shows some moderate tenderness with very firm ropelike musculature in the low lumbar distribution also into the right gluteus right hamstring to the knee on the posterior aspect of the right lower extremity. Very firm ropelike muscular consistent with areas of trigger point musculature as on previous exam. No tenderness over the spinous processes, sacrum or sacroiliac regions. EXTREMITIES: Lower extremities show deep tendon reflexes 2+ in the patellar and tendo calcaneus tendons. Motor exam is 3 on a scale of 5 with right dorsiflexion, extension, quadriceps and hamstring flexion and 4/5 on the left. Peripheral pulses are 1+ posterior tibial. No peripheral edema is noted bilaterally. Lower extremities are warm and dry to touch, equal in color and appearance. SKIN: Shows warm and dry, good turgor. No edema. No sores, rashes or bruising throughout. Procedure: Procedure: Options discussed with the patient. Patient's old chart was reviewed as was her current medication regimen updated current review of systems updated today as well. We will proceed with trigger point injections of the identified musculature. Risk were discussed including but not limited to bleeding infection possibility of intravascular injection sequelae spread local anesthetic numbness side effects of steroid medication and poor results regarding pain control. Patient understands wishes to proceed. Patient will return to the clinic in approximate 4 weeks as scheduled was counseled as to ret urn appointment activity level and side effects to be aware of. Medication Injected: Med Injected: Under sterile prep and drape patient in the left lateral decubitus position patient's lumbar paraspinous musculature as well as the right gluteus right hamstrings in the right biceps femoris, right adductor merari, right semitendinous and semimembranous musculature trigger points were identified and injected using 25-gauge needle after negative aspiration each injection site. Also patient's left cervical paraspinous posterior left trapezius injected with 25-gauge needle for a total of 12 cc 0.25% bupivacaine and a total of 40 mg Depo-Medrol. Patient tolerated the procedure well and had no complications. Condition at Discharge: Condition at Discharge: Condition at discharge stable, patient alert procedure well and had no complications. BRITTA RAMIREZ MD September 20, 2020 12:13
== END | disposition home or self-care (01) ==
LOC: PNCL 10:41
PROVIDERS: ATTEND Anesthesiology
DX: M79.18 Myalgia, other site (principal); M96.1 Postlaminectomy syndrome, not elsewhere classified; G82.20 Paraplegia, unspecified; R25.2 Cramp and spasm; Z79.899 Other long term (current) drug therapy; Z88.8 Allergy status to other drugs, medicaments and biological substances
CPT/HCPCS: 20553; J1030; J3490

== ENCOUNTER → 2020-11-14 | Outpatient (CLI) | payer OTHER, MEDICAID ==
--- NOTE | 2020-11-14 10:22 | PDOC ---
Progress Note - Pain Clinic Date of Service: DOS: DATE: 11/14/20 TIME: 10:14 Diagnosis: Dx: Myofascial pain with spasticity Lumbar radiculopathy lumbar postlaminectomy syndrome Partial paraplegia History or Present Illness: HPI: 60-year-old female returns for follow-up status post trigger point injections with good results about 60% improvement for about 2 weeks following the injections. Patient reports now pain returning in the left shoulder and upper extremity with radiating pain into the arm and hand on the left side also spasticity and tightness in the base the neck and shoulder on the left side as previously patient reports also pain in the right low back as well as in the posterior gluteus posterior thigh to the level of the ankle as well with spasticity increasing. Patient reports is a 9 on scale 10 is worst average and least over the past week is a 9 today. Patient also reports complaint of pain over her intrathecal pump which is been dysfunctional now for 2 years and is over the left lumbar region as well very tight very painful keeping her up at night difficulty with sitting as she is in a wheelchair most of her time. Patient reports pain is aching sharp shooting burning tingling stabbing radiating can be constant unbearable with motion patient reports it wakes her from sleep but not more than once every 7 hours. Patient reports he still taking oxycodone which does fairly well with her pain, and is added [id number] ibuprofen 800 mg 3 times daily has occasional stomach upset but does decrease the pain by about 10 to 20%. Physical Exam: VS: Blood pressure is 133/81 pulse 74 respirations 18 temperature 97.6 3 Fahrenheit height is 5 feet 4 inches weight 110 pounds PE: PHYSICAL EXAMINATION: GENERAL: The patient is awake, alert, oriented, appropriate, very pleasant in demeanor. Patient in motorized wheelchair HEENT: Shows normocephalic, atraumatic. Extraocular movements are intact and symmetrical. Oral cavity: Mucous membranes moist and pink. Dentition is intact. NECK: Shows anterior throat supple without palpable lymphadenopathy noted. Swallow reflex symmetrical. CHEST: Shows normal on inspection. Breath sounds are clear bilaterally, distant no rales or rhonchi. HEART: Shows S1, S2 clear. No murmurs auscultated. ABDOMEN: Soft, nontender, nondistended. BACK: Shows spine grossly in the midline. Normal-appearing cervical lordotic curvature. Cervical paraspinous muscle shows very tender ropelike musculature in the inferior aspect of the left cervical paraspinous posterior and the superior medial trapezius this is true into the lateral trapezius as well as the supra and infrascapular regions with very firm ropelike musculature consistent with trigger point areas of muscle. No radiation is demonstrated on palpation. There is slightly increased thoracic kyphosis, some flattening of the lumbar lordotic curvature with well-healed surgical scar noted. Patient has intrathecal pump in the left lower lumbar distribution which is very tight and tender even with light palpation appears to be tenting the skin to some extent with some erythema on the superior margin of the pump itself. Lumbar paraspinous muscles show symmetrical on inspection, on palpation shows some moderate tenderness diffusely throughout the upper, middle and lower distribution of the paraspinous muscles with tenderness and very firm ropelike musculature in the right side of the very inferior aspect of the lumbar paraspinous posterior also into the right gluteus with very firm ropelike musculature consistent with trigger point without radiation.. The patient has good rotational motion of the lumbar spine, both laterally as well as extension and flexion without significant difficulty. No tenderness over the spinous processes, sacrum or sacroiliac regions. EXTREMITIES: Lower extremities show deep tendon reflexes 2+ in the patellar and tendo calcaneus tendons. Motor exam is 3 on a scale of 5 with right dorsiflexion, extension, quadriceps and hamstring flexion and 4/5 on the left. Peripheral pulses are 1+ posterior tibial. No peripheral edema is noted bilaterally. Patient's right leg shows significant tenderness in the hamstring on the right side posteriorly with very firm ropelike musculature consistent throughout the upper middle and lower distribution of the lateral middle and medial musculature without radiation. SKIN: Shows warm and dry, good turgor. No edema. No sores, rashes or bruising throughout. Procedure: Procedure: Options discussed with patient. Patient's old chart was reviewed as her current medication regimen updated current review of systems updated today as well. We will proceed with trigger point injections of the identified musculature. Risk were discussed including but not limited to bleeding infection possibility of intravascular injection sequelae spread local anesthetic numbness side effects of steroid medication and portals regarding pain control. Patient understands wished to proceed. Also will order MRI scan of the cervical spine to better differentiate the radicular quality of pain she has in her left upper extremity. Patient return to clinic in approximately 2 weeks as scheduled. Medication Injected: Med Injected: Under sterile prep and drape patient in the prone position, trigger points identified in the cervical distribution on the left in the inferior aspect and into the superior medial trapezius lateral trapezius as well as the supra and infrascapular musculature, right lumbar paraspinous muscles are in the low distribution as well as right gluteus right hamstring musculature consisting of right biceps for Jack, right abductor merari, right semitenderness, semimembranous musculature. Aspiration was noted be negative at each injection site for total 14 cc 0.25% bupivacaine and total of 40 mg Depo-Medrol. Patient tolerated procedure well and had no complications. Condition at Discharge: Condition at Discharge: Condition at discharge is stable, patient already procedure well and had no complications. BRITTA RAMIREZ MD Nov 14, 2020 10:22
--- NOTE | 2020-11-14 10:23 | PDOC4 ---
Procedure Note: Procedure Note: Patient was consented for trigger point injections. Risk were discussed including but not limited to bleeding infection possibility of intravascular injection and sequelae spread local anesthetic numbness side effects steroid medication portals regarding pain control. Patient understands wished to proceed. Under sterile prep and drape patient in the prone position, trigger points identified in the cervical distribution on the left in the inferior aspect and into the superior medial trapezius lateral trapezius as well as the supra and infrascapular musculature, right lumbar paraspinous muscles are in the low distribution as well as right gluteus right hamstring musculature consisting of right biceps for Jack, right abductor merari, right semitenderness, semimembranous musculature. Aspiration was noted be negative at each injection site for total 14 cc 0.25% bupivacaine and total of 40 mg Depo-Medrol. Patient tolerated procedure well and had no complications. BRITTA RAMIREZ MD Nov 14, 2020 10:23
== END | disposition home or self-care (01) ==
LOC: PNCL 09:16
PROVIDERS: ATTEND Anesthesiology
DX: M79.18 Myalgia, other site (principal); M54.16 Radiculopathy, lumbar region; M96.1 Postlaminectomy syndrome, not elsewhere classified; R25.2 Cramp and spasm; G82.20 Paraplegia, unspecified; Z79.899 Other long term (current) drug therapy; Z88.8 Allergy status to other drugs, medicaments and biological substances
CPT/HCPCS: 20553; J1030; J3490

== ENCOUNTER → 2020-11-23 | Outpatient (CLI) | payer OTHER, MEDICAID ==
[~2020-11-23] MED LIST changes: -BUPIVACAINE MPF 0.25% 30 ML VIAL. ONE; -methylPREDNISolone ACETATE 40 MG/ML VIAL. ONE
--- NOTE | 2020-11-25 08:26 | KCIC ---
Two-view abdomen radiographs 11/23/2020 CLINICAL HISTORY: Abdominal pain. Supine and erect AP digital radiographs of the abdomen/pelvis were obtained. Patient is post bilatera l SANJEEV. A side plate and cerclage wires overlies the proximal right femur. A plate and bone screws ove rlies the right mid pelvis. Pedicle screws and stabilizing rods overlie L5-S1. A pain pump reservoir overlies the left gluteal region. A catheter extends superiorly to overlie the thoracic spine. The richard ng bases are clear. The abdominal bowel gas pattern is nonobstructive. There is diffuse osteopenia th e visualized bony structures. IMPRESSION: Nonobstructive bowel gas pattern. Electronically signed by: Carlos Palma MD (11/25/2020 8:23 AM) [id number]
--- NOTE | 2020-11-25 08:34 | KCIC ---
Three-view thoracic and lumbar spine radiographs 11/23/2020 CLINICAL HISTORY: Chronic mid and low back pain. AP, lateral and swimmer's lateral and AP and two lateral digital radiographs of the lumbar spine were obtained. There is diffuse osteopenia of the visualized bony structures. Very mild S-shaped curvatur e of the thoracolumbar spine is seen. The patient is post kyphoplasty type procedure involving the T6 and T8 vertebral bodies. Pedicle screws and stabilizing rods extend from L4 to S1. The patient is po st bilateral SANJEEV. A side plate and cerclage wires overlie the proximal right femur. A plate and bone screws overlies the right superior pelvis. A pain pump is seen within the soft tissues of the superio r left gluteal region. A catheter extends in the expected location of location of the thecal sac to t he superior T8 level. An old appearing compression fracture of the T4 vertebral body is seen. No acut e compression fracture of the thoracic or lumbar vertebra is definite seen. Degenerative changes are seen involving the thoracic and lumbar disc spaces consisting of vertebral endplate sclerosis and min imal to mild anterior and posterior vertebral body osteophyte formation. Degenerative changes are see n involving the facet joints throughout the mid and lower thoracic and throughout the lumbar spine. IMPRESSION: Postsurgical and degenerative changes are seen involving the thoracic and lumbar spine as discussed above. Electronically signed by: Carlos Palma MD (11/25/2020 8:32 AM) [id number]
== END ==
LOC: KCIC 12:24
PROVIDERS: ATTEND Neurological Surgery
DX: M47.25 Other spondylosis with radiculopathy, thoracolumbar region (principal); M85.88 Other specified disorders of bone density and structure, other site; M25.78 Osteophyte, vertebrae; M43.8X5 Other specified deforming dorsopathies, thoracolumbar region
CPT/HCPCS: 72072; 72100; 74021

== ENCOUNTER → 2020-11-29 | Outpatient (CLI) | payer OTHER, MEDICAID ==
[2020-11-29 13:58] LABS: BASO % 0 % (0-3); EOS # 0.1 x10^3/uL (0.0-0.7); EOS % 1 % (0-3); HEMATOCRIT 35.8 % (36.0-47.0); HEMOGLOBIN 12.1 g/dL (12.0-15.5); LYMPH # 1.7 x10^3/uL (1.0-4.8); LYMPH % 32 % (24-48); MEAN CORPUSCULAR HEMOGLOBIN 30 pg (25-35); MEAN CORPUSCULAR HGB CONC 34 g/dL (31-37); MEAN CORPUSCULAR VOLUME 90 fL (79-100); MONO # 0.4 x10^3/uL (0.0-1.1); MONO % 8 % (0-9); NEUT # 3.1 x10^3/uL (1.8-7.7); NEUT % 59 % (31-73); PLATELET COUNT 256 x10^3/uL (140-400); RED BLOOD COUNT 3.99 x10^6/uL (3.50-5.40); RED CELL DISTRIBUTION WIDTH 13.2 % (11.5-14.5); WHITE BLOOD COUNT 5.3 x10^3/uL (4.0-11.0)
[2020-11-29 14:10] LABS: PROTHROMBIN TIME PATIENT 12.3 SEC (11.7-14.0)
[2020-11-29 14:15] LABS: ALBUMIN 3.5 g/dL (3.4-5.0); ALBUMIN/GLOBULIN RATIO 0.9 (1.0-1.7); CALCIUM 9.2 mg/dL (8.5-10.1); CREATININE 0.4 mg/dL (0.6-1.0); GFR 161.7; POTASSIUM 3.7 mmol/L (3.5-5.1); TOTAL BILIRUBIN 0.2 mg/dL (0.2-1.0); TOTAL PROTEIN 7.4 g/dL (6.4-8.2)
[2020-11-30 00:14] LABS: HEMOGLOBIN A1C 5.4 % (4.8-5.6)
== END ==
LOC: SURGPAT 12:53
PROVIDERS: ATTEND Neurological Surgery
DX: Z01.818 Encounter for other preprocedural examination (principal); T85.698A Other mechanical complication of other specified internal prosthetic devices, implants and grafts, initial encounter; X58.XXXA Exposure to other specified factors, initial encounter; Y93.89 Activity, other specified; Y92.89 Other specified places as the place of occurrence of the external cause; Y99.8 Other external cause status
CPT/HCPCS: 36415; 80053; 83036; 85025; 85610; 85730; 87641

== ENCOUNTER 2020-12-04 09:42 | Day surgery (SDC) | payer OTHER, MEDICAID ==
[2020-11-29 13:37] VITALS: BP 107/76
[~2020-12-04] VITALS: Ht 154.9 cm; Wt 50.3 kg
[~2020-12-04 09:42] MED LIST changes: +IV RINGERS,LACTATED 1000ML 1,000 ML IV SCH; +MORPHINE SULFATE 2 MG/ML INJ. IVP PRN; +fentaNYL PF VIAL 100 MCG/2 ML VIAL IVP PRN
[2020-12-04] MEDS ORDERED: LIDOCAINE 1%/EPI 1:100,000 20 ML VIAL. ONE (10:09)
[2020-12-04 10:14] VITALS: BP 150/73
[2020-12-04] MEDS ORDERED: ROCURONIUM 50 MG/5 ML VIAL. ONE (10:14)
[2020-12-04] MEDS ORDERED: fentaNYL PF VIAL 100 MCG/2 ML VIAL ONE (10:15)
[2020-12-04] MEDS ORDERED: ONDANSETRON PF 4 MG/2 ML VIAL. ONE (10:18)
[2020-12-04] MEDS ORDERED: DEXAMETHASONE SOD PHOS 4 MG/ML VIAL ONE (10:18)
[2020-12-04] MEDS ORDERED: PROPOFOL 10 MG/ML (20ML) VIAL. IV ONE (10:18)
[2020-12-04] MEDS ORDERED: LIDOCAINE 2% PF 5 ML VIAL. ONE (10:18)
[2020-12-04] MEDS ORDERED: GLYCOPYRROLATE 1 MG/5 ML VIAL. ONE (10:53)
[2020-12-04] MEDS ORDERED: NEOSTIGMINE METHYLSULFATE 5 MG/5 ML SYRINGE. ONE (10:53)
[2020-12-04] MEDS ORDERED: SEVOFLURANE 61 TO 120 MINUTES. IH ONE (12:02)
--- NOTE | 2020-12-04 12:02 | PDOC ---
BRIEF OPERATIVE NOTE Date: Dec 04, 2020 Pre-Op Diagnosis nonfunctional pain pump Post-Op Diagnosis same Procedure Performed removal of intrathecal pain pump Surgeon Scot Crm Consultant none Anesthesia Type: General Blood Loss 1mL Specimens Obtained explant pain pump Findings nonfunctional pump, scar tissue, no evidence of CSF leak Complications none apparent ANNE MARIE HERNANDEZ MD Dec 04, 2020 12:02
[2020-12-04] MEDS ORDERED: KETOROLAC 30 MG/ML VIAL. ONE (12:07)
[2020-12-04] MEDS ORDERED: PROCHLORPERAZINE 10 MG/2 ML VIAL. ONE (12:09)
[2020-12-04] MEDS ORDERED: HYDROmorphone 2 MG/ML VIAL ONE (12:09)
[2020-12-04] MEDS ORDERED: OXYC-325 PO (12:11)
[2020-12-04] MEDS: HYDROmorphone 2 MG/ML VIAL IVP PRN ×4 (12:13→12:56)
[2020-12-04] MEDS: PROCHLORPERAZINE 10 MG/2 ML VIAL. IVP PRN ×2 (12:22→12:41)
[2020-12-04] MEDS ORDERED: oxyCODONE/APAP 5/325 1 TAB TABLET PO ONE (12:45)
[2020-12-04 14:00] VITALS: BP 113/56
--- NOTE | 2020-12-05 21:07 | OP ---
DATE OF SURGERY: 12/04/2020 PREOPERATIVE DIAGNOSIS: Nonfunctional intrathecal pain pump with local pain at the pain pump site in the left flank. POSTOPERATIVE DIAGNOSIS: Nonfunctional intrathecal pain pump with local pain at the pain pump site in the left flank. PROCEDURE: Removal of intrathecal pain pump. ANESTHESIA: General. COMPLICATIONS: None. INDICATIONS FOR PROCEDURE: The patient is a 60-year-old female who has an intrathecal pain pump apparatus that was placed in the left flank. This pump has been nonfunctional for many years and produces local pain at the pump site in her left flank. The patient wishes removal of the pump. Please refer to the patient's chart for additional detail. DESCRIPTION OF PROCEDURE: After informed consent was obtained, the patient was brought to the operating room. She was placed under general anesthesia, placed in the prone position, and all pressure points were checked and padded appropriately. Ancef was instituted for prophylaxis. The patient had a previous left flank incision where the pump apparatus was readily palpable and a paracentral incision over the region where the intrathecal catheter anchor was located near the intrathecal insertion site. These regions were prepped and draped in the usual sterile fashion and the left flank incision was opened with a 10 blade scalpel. Dissection was carried down to the pain pump apparatus and the securing sutures were detached. The pump apparatus was removed. Next, the paracentral incision over the pain pump catheter anchor was opened with a 10 blade scalpel and dissection was carried down to the anchor apparatus. This was subsequently cut free and the intrathecal catheter was gently removed from the intrathecal space superiorly until the tip of the catheter with its radiopaque head was noted. The catheter was removed in its entirety from the intrathecal space without difficulty. No cerebrospinal fluid was identified at the insertion site and this was verified with Valsalva maneuver. Despite this, after the entire catheter and pain pump apparatus were removed, the region near the insertion site of the intrathecal catheter was oversewn with multiple 0 Vicryl sutures. Both wounds were then generously irrigated prior to the final closure. Pristine hemostasis was achieved with tamponade. There was minimal blood loss. The underlying soft tissues were then reapproximated with 0 Vicryl, 2-0 Vicryl in interrupted inverted fashion. The skin was reapproximated with 4-0 Vicryl in a running subcuticular fashion at both incision sites. Both incisions were dressed with Mastisol and Steri-Strips as well as Telfa, 4 x 4s, and Tegaderm. At the end of the procedure, all needle and sponge counts were correct x 2. The patient was extubated in the operating room and taken to recovery in stable condition. There were no intraprocedural complications apparent. EDEL DR: Jaren TID: [id number] MTDD
== END 2020-12-04 14:36 | disposition home or self-care (01) ==
LOC: SURG 09:42
PROVIDERS: ATTEND Neurological Surgery
DX: T85.695A Other mechanical complication of other nervous system device, implant or graft, initial encounter (principal); I10 Essential (primary) hypertension; E78.00 Pure hypercholesterolemia, unspecified; J44.9 Chronic obstructive pulmonary disease, unspecified; M19.90 Unspecified osteoarthritis, unspecified site; F41.9 Anxiety disorder, unspecified; Z79.899 Other long term (current) drug therapy; Z96.641 Presence of right artificial hip joint; Z98.890 Other specified postprocedural states; Y83.8 Other surgical procedures as the cause of abnormal reaction of the patient, or of later complication, without mention of misadventure at the time of the procedure
CPT/HCPCS: 62365; A4364; A4930; A6258; A6402; J0690; J0780; J1100; J1170; J1885; J2405; J2704; J2710; J3010; J3490; A4223; A4452

== ENCOUNTER → 2021-02-21 | Outpatient (CLI) | payer OTHER, MEDICAID ==
[~2021-02-21] MED LIST changes: +BUPIVACAINE MPF 0.25% 10 ML VIAL. ONE; -IV RINGERS,LACTATED 1000ML 1,000 ML IV SCH; -MORPHINE SULFATE 2 MG/ML INJ. IVP PRN; -fentaNYL PF VIAL 100 MCG/2 ML VIAL IVP PRN; +methylPREDNISolone ACETATE 40 MG/ML VIAL. ONE
--- NOTE | 2021-02-21 10:47 | PDOC ---
Progress Note - Pain Clinic Date of Service: DOS: DATE: 02/21/21 TIME: 10:41 Diagnosis: Dx: Myofascial pain with spasticity Lumbar radiculopathy with lumbar postlaminectomy syndrome Partial paraplegia History or Present Illness: HPI: 61-year-old female returns for follow-up status post trigger point injections last seen 2020-11-14. Patient has finally gotten her intrathecal pump removed and is feeling much better in regards to her left sided low back pain from the pump itself. Patient reports that her last trigger point injections were very helpful with approximately 75 to 80% improvement now about 60% improvement still decreasing the pain patient reports pain the base the neck and shoulder on the left side upper back mid back as well in the low back on the right side into the right to posterior gluteus posterior lateral thigh into the calf at times but more spasticity in the posterior aspect of the right thigh as well as the right low back. Patient reports initially he did very well with activity transferring from wheelchair to standing and to bed and then so forth with good ability to perform activities of daily living as well as household activities and travel with greater ease patient reports she is sleeping better as well but the pain is been returned now over the past 3 to 4 weeks in the left shoulder as well as in the low back and in the right leg rated as a 9 on scale 10 is worse over the past week 9 on average 9 its least is a 9 today patient rated as tingling burning cramping stabbing aching can be sharp and dull radiating can be constant unbearable in the right leg as well with weightbearing. Patient reports no loss of motor function no bowel or bladder incontinence continence changes. Physical Exam: VS: Blood pressure is 134/94 pulse 83 respirations 18 temperature 90.4 F height is 5 foot 4 inches weight is 111 pounds PE: PHYSICAL EXAMINATION: GENERAL: The patient is awake, alert, oriented, appropriate, very pleasant in demeanor HEENT: Shows normocephalic, atraumatic. Extraocular movements are intact and symmetrical. Oral cavity: Mucous membranes moist and pink. Dentition is int act. NECK: Shows anterior throat supple without palpable lymphadenopathy noted. Swallow reflex symmetrical. CHEST: Shows normal on inspection. Breath sounds are clear bilaterally, distant but no rales rhonchi wheezes auscultated. HEART: Shows S1, S2 clear. No murmurs auscultated. ABDOMEN: Soft, nontender, nondistended, obese. No palpable organomegaly is noted. BACK: Shows spine grossly in the midline. Normal-appearing cervical lordotic curvature. Cervical paraspinous muscles show symmetrical with inspection with palpation some significant tenderness in the left-sided cervical paraspinous posterior middle and inferior aspect of the cervical paraspinous muscles very firm ropelike musculature very tender with palpation without specific radiation. This is true into the left superior medial and lateral aspect of the trapezius muscle as well as very firm ropelike musculature consistent with trigger point areas of muscle without radiation. There is slightly increased thoracic kyphosis, some minor flattening of the lumbar lordotic curvature. Lumbar paraspinous muscles show symmetrical on inspection, on palpation shows some moderate tenderness diffusely throughout the upper, middle and lower distribution of the paraspinous muscles bilaterally and also into the lower thoracic paraspinous musculature, firm and tender, with significant tender trigger points in the right sided mid to low lumbar paraspinous musculature as well as into the right gluteus and extending into the right biceps for Jack, right abductor merari, right semitenderness and semimembranous musculature hamstrings. No radiation is demonstrated but multiple trigger points throughout these musculature groups. EXTREMITIES: Lower extremities show deep tendon reflexes 1+ in the patellar and tendo calcaneus tendons. Motor exam is 3 on a scale of 5 with right dorsiflexion, extension, quadriceps and hamstring flexion and 4/5 on the left. Peripheral pulses are 1+ posterior tibial. No peripheral edema is noted bilaterally. Lower extremities are warm and dry. SKIN: Shows warm and dry, good turgor. No edema. No sores, rashes or bruising throughout. Procedure: Procedure: Options discussed with the patient. Patient chart reviews her current medication regimen updated current review of systems updated today as well. We will proceed with trigger point injections of the left cervical paraspinous post erior left trapezius musculature, right lumbar paraspinous posture, right biceps for Jack, right abductor merari, right semimembranous and semitendinous musculature. Risk discussed including not limited to bleeding infection possibility of intravascular injection sequelae spread of local anesthetic and numbness side effects of steroid medication as well as poor results regarding pain control. Patient understands wished to proceed. Patient return to clinic in approximate 4 weeks for follow-up, was counseled for appointment, activity level, and side effects beware of. Medication Injected: Med Injected: Under sterile prep and drape patient in semiprone position identified musculature in the left cervical and trapezius musculature as well as the right lumbar paraspinous posterior right biceps femoris right abductor merari right semimembranosus and semitendinosus hamstring musculature trigger points were identified using a 25-gauge needle after negative aspiration each injection site were injected with 1 cc of 0.25% bupivacaine and a total of 40 mg Depo-Medrol. Patient tolerated procedure well and had no complications. Condition at Discharge: Condition at Discharge: Condition at discharge stable, patient already procedure well and had no complications. BRITTA RAMIREZ MD Feb 21, 2021 10:47
--- NOTE | 2021-02-21 10:48 | PDOC4 ---
Procedure Note: ICD 10 Code: ICD 10 Code: M60.89 M 96.1 G80.1 Procedure Note: Patient was consented for trigger point injections. Risk were discussed including but not limited to bleeding infection possibility of intravascular injection sequelae spread local anesthetic numbness pneumothorax side effects steroid medication portals regarding pain control. Patient understands wished to proceed. Under sterile prep and drape patient in semiprone position identified musculature in the left cervical and trapezius musculature as well as the right lumbar paraspinous posterior right biceps femoris right abductor merari right semimembranosus and semitendinosus hamstring musculature trigger points were identified using a 25-gauge needle after negative aspiration each injection site were injected with 1 cc of 0.25% bupivacaine and a total of 40 mg Depo-Medrol. Patient tolerated procedure well and had no complications. BRITTA RAMIREZ MD Feb 21, 2021 10:48
== END | disposition home or self-care (01) ==
LOC: PNCL 10:12
PROVIDERS: ATTEND Anesthesiology
DX: M79.18 Myalgia, other site (principal); M54.16 Radiculopathy, lumbar region; M96.1 Postlaminectomy syndrome, not elsewhere classified; R25.2 Cramp and spasm; G80.1 Spastic diplegic cerebral palsy; I10 Essential (primary) hypertension; E78.00 Pure hypercholesterolemia, unspecified; J44.9 Chronic obstructive pulmonary disease, unspecified; M19.90 Unspecified osteoarthritis, unspecified site; F41.9 Anxiety disorder, unspecified; Z79.899 Other long term (current) drug therapy; Z88.8 Allergy status to other drugs, medicaments and biological substances; Z98.890 Other specified postprocedural states
CPT/HCPCS: 20553; J1030; J3490

== ENCOUNTER → 2021-08-06 | Outpatient (CLI) | payer OTHER, MEDICAID ==
[~2021-08-06] MED LIST changes: +DEXAMETHASONE PRES.FREE 10 MG/ML VIAL. ONE; -methylPREDNISolone ACETATE 40 MG/ML VIAL. ONE
--- NOTE | 2021-08-06 11:58 | PDOC ---
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 History or Present Illness: HPI: 61-year-old female returns for follow-up status post trigger point injections last seen February 21, 2021 patient did very well with the injections in about a 70% improvement patient reports that the shoulder is doing much better but her main complaint is pain in the right posterior gluteus and posterior medial lower leg as well as the lateral lower leg patient reports is aching and shooting tingling burning can be stabbing and cramping radiating can be constant severe with mobility changes getting up or putting weight patient reports no loss of motor function but significant fatigability of the musculature with increased past history and tightness in the right leg and patient reports is worse with prolonged sitting and patient is in a wheelchair for most of her mobility as she is partially paraplegic. Patient rates her pain a 9 on scale 10 is worst over the past week 9 on average 9 its least is a 9 today. Patient reports no loss of the increase plasticity tightness is much more painful make it difficult for her to sleep what is waking her from sleep about every 4 hours or so. Patient reports no bowel or bladder incontinence. Physical Exam: VS: Blood pressure is 129/83 pulse 88 respirations 18 temperature 98.2 F 5 feet 4 inches weight is 113 pounds. PE: PHYSICAL EXAMINATION: GENERAL: The patient is awake, alert, oriented, appropriate, very pleasant in demeanor HEENT: Shows normocephalic, atraumatic. Extraocular movements are intact and symmetrical. Oral cavity: Mucous membranes moist and pink. Dentition is intact. NECK: Shows anterior throat supple without palpable lymphadenopathy noted. Swallow reflex symmetrical. CHEST: Shows normal on inspection. Breath sounds are clear bilaterally, no rales rhonchi or wheezes auscultated. HEART: Shows S1, S2 clear. No murmurs auscultated. ABDOMEN: Soft, nontender, nondistended. No palpable organomegaly is noted. BACK: Shows spine grossly in the midline. Normal-appearing cervical lordotic curvature. There is moderately increased thoracic kyphosis, some flattening of the lumbar lordotic curvature, with well-healed surgical scarring from previous intrathecal pump now removed. Lumbar paraspinous muscles show symmetrical on inspection, on palpation shows some moderate tenderness diffusely throughout the upper, middle and lower distribution of the paraspinous muscles, without radiation of pain. The patient has good rotational motion of the lumbar spine, both laterally as well as extension and flexion without significant difficulty. No tenderness over the spinous processes, sacrum or sacroiliac regions. EXTREMITIES: Lower extremities show deep tendon reflexes 1+ in the patellar and tendo calcaneus tendons. Motor exam is 3 on a scale of 5 with right dorsiflexion, extension, quadriceps and hamstring flexion and 4/5 on the left. Peripheral pulses are 1+ posterior tibial. No peripheral edema is noted bilaterally. Lower extremities are warm and dry. Patient significant tenderness in the gluteus musculature very firm ropelike musculature in the inferior aspect of the medial gluteus as well as in the quadriceps with right biceps for Jack as well as right abductor merari right semimembranosus and semitendinous musculature very firm [place] musculature consistent with trigger point areas but without specific radiation on palpation but very tender with palpation. Patient has significant weakness in the right lower extremity but is able to get herself up out of her wheelchair and onto the examining bed without significant assistance. SKIN: Shows warm and dry, good turgor. No edema. No sores, rashes or bruising throughout. Procedure: Procedure: Options were discussed with the patient. Patient's old chart was reviewed as her current medication regimen updated current review of systems updated today as well. We will proceed with trigger point injections of the identified musculature right gluteus, right biceps femoris, right abductor merari, right semimembranosus and semitendinous muscles. Risks discussed including but not limited to bleeding infection possibility of intravascular injection and sequelae spread of local anesthetic and numbness as well as poor results regarding pain control. Patient understands wishes to proceed. She will return to the clinic in approximately 4 weeks for follow-up, was counseled as to activity level as well as side effects to be aware of. Medication Injected: Med Injected: Patient in left lateral cubitus position under sterile prep and drape trigger points were identified in the right gluteus, right biceps femoris, right abductor merari, right semimembranosus, right semitendinous musculature and using 25-gauge needle were injected after negative aspiration each side for a total of 10 cc 0.25% Vivacaine and a total of 15 mg of dexamethasone. Patient tolerated the procedure well and had no complications. Condition at Discharge: Condition at Discharge: Condition at discharge stable, patient Kai the procedure well and had no complications. BRITTA RAMIREZ MD Aug 06, 2021 11:58
--- NOTE | 2021-08-06 11:58 | PDOC4 ---
Procedure Note: ICD 10 Code: ICD 10 Code: M60.89 G8 0.1 Procedure Note: Patient was consented for trigger point injections of the right gluteus, right biceps for Jack, right abductor merari, right semimembranous, right semitendinous muscles. Risk were discussed including but not limited to bleeding infection possibility of intravascular injection sequelae spread of local anesthetic numbness side effects steroid medication and poor results regarding pain control. Patient understands wishes to proceed. Patient in left lateral cubitus position under sterile prep and drape trigger points were identified in the right gluteus, right biceps femoris, right abductor merari, right semimembranosus, right semitendinous musculature and using 25-gauge needle were injected after negative aspiration each side for a total of 10 cc 0.25% Vivacaine and a total of 15 mg of dexamethasone. Patient tolerated the procedure well and had no complications. BRITTA RAMIREZ MD Aug 06, 2021 11:58
== END | disposition home or self-care (01) ==
LOC: PNCL 10:32
PROVIDERS: ATTEND Anesthesiology
DX: M79.18 Myalgia, other site (principal); M96.1 Postlaminectomy syndrome, not elsewhere classified; G80.1 Spastic diplegic cerebral palsy; I10 Essential (primary) hypertension; E78.00 Pure hypercholesterolemia, unspecified; J44.9 Chronic obstructive pulmonary disease, unspecified; M19.90 Unspecified osteoarthritis, unspecified site; F41.9 Anxiety disorder, unspecified; Z79.899 Other long term (current) drug therapy; Z98.890 Other specified postprocedural states; Z88.8 Allergy status to other drugs, medicaments and biological substances
CPT/HCPCS: 20553; J1100; J3490